=== PATIENT | male | born 1990 | race Caucasian/White ===

== ENCOUNTER 2020-12-26 11:15 | Emergency (ER) | payer OTHER, SELFPAY ==
[2020-12-26 11:36] VITALS: BP 142/74; PULSE 89; RESP 18; TEMP 37.6; O2SAT 99
--- NOTE | 2020-12-26 11:45 | ED.GENADULT ---
HPI - General Adult General Chief complaint: Urogenital-Male Stated complaint: painful urination Time Seen by Provider: 12/26/20 11:45 Source: patient Mode of arrival: ambulatory Limitations: no limitations History of Present Illness HPI narrative: 30-year-old male patient presents to the [facility] with complaints of urinary symptoms for the past 3 days. Patient states that he notices a little pain to the tip of the penis after urinating. Denies any frequency or urgency. Denies any low back pain or abdominal pain. Denies any fevers, body aches or chills. Denies any lesions to the penis. Patient states he does not have any concerns for any STDs because he has been in a long-term committed relationship for the past 6 years and this has been his only partner. Related Data Allergies Allergy/AdvReac Type Severity Reaction Status Date / Time No Known Allergies Allergy Verified 12/26/20 11:44 Review of Systems Review of Systems: Narrative: CONSTITUTIONAL: Denies fever, chills, or sweats. EYES: Denies visual changes, redness, or discharge. ENT: Denies rhinorrhea, congestion, sore throat, or otalgia. CARDIOVASCULAR: Denies chest pain, palpitations, or edema. RESPIRATORY: Denies cough or dyspnea. GASTROINTESTINAL: Denies abdominal pain, nausea, vomiting, or diarrhea. GENITOURINARY: Denies dysuria or hematuria. Positive pain with urination x3 days SKIN: Denies rash or itching. MUSCULOSKELETAL: Denies back pain, joint pain, or myalgia. NEUROLOGIC: Denies headache, numbness, or weakness. PSYCHIATRIC: Denies anxiety or depression. PMFSH Past Medical History Medical History (Updated 12/26/20 @ 11:52 by JM Lopez) No significant past medical history Social History Social History Gender identity (if verbalized by the patient): Male Comments At the time of my signature I agree with nursing past medical history, surgical, social, and family history. There is no relevant family history pertinent to the presenting complaint. Exam Narrative: Exam Narrative: GENERAL: Well-appearing, well-nourished, and in no acute distress. HEAD: Normocephalic, atraumatic. EYES: PERRLA and EOMI. ENT: Nares clear, no rhinorrhea or epistaxis. Mucous membranes moist. NECK: Supple. No lymphadenopathy CHEST: Clear to auscultation. No respiratory distress. HEART: Regular rate and rhythm. No murmur heard. Normal peripheral pulses. ABDOMEN: Soft, nontender, nondistended, normal active bowel sounds. No CVA tenderness on percussion EXTREMITIES: Normal range of motion. No edema. SKIN: Warm, dry, no rash. NEURO: No focal deficits. Alert and oriented x3. Course Vital Signs Vital signs: Vital Signs Temperature 37.6 C 12/26/20 11:36 Pulse Rate 89 12/26/20 11:36 Respiratory Rate 18 12/26/20 11:36 Blood Pressure 142/74 H 12/26/20 11:36 Pulse Oximetry 99 12/26/20 11:36 Temperature 37.6 C 12/26/20 11:36 Pulse Rate 89 12/26/20 11:36 Respiratory Rate 18 12/26/20 11:36 Blood Pressure 142/74 H 12/26/20 11:36 Pulse Oximetry 99 12/26/20 11:36 Vital signs reviewed The patient has been informed that they may have pre-hypertension or Hypertension based on a BP reading in the department. I recommend that the patient call the primary care provider listed on their discharge instructions or a physician of their choice this week to arrange follow up for further evaluation of possible pre-hypertension or Hypertension Medical Decision Making Differential Diagnosis Differential Diagnosis: Differential diagnosis: Uncomplicated lower UTI, uncomplicated UTI, polynephritis, penile trauma,balanoposthitis, phimosis, paraphimosis, testicular torsion, epididymitis, prostatitis, varicocele, spermatocele, hydrocele, hernia. Cussed with patient that we will send his urine off to the lab for culture however the urine dip did not really show anything at this time. Discussed with josé luis
== END 2020-12-26 11:57 | disposition home or self-care (01) ==
PROVIDERS: Emergency Provider Nurse Practitioner Family
DX: R30.0 Dysuria (principal); R39.198 Other difficulties with micturition
CPT/HCPCS: 81003; 87086; 99203; G0463